=== PATIENT | male | born 1955 | race Caucasian/White ===

== ENCOUNTER 2017-09-12 12:50 | Day surgery (SDC) | payer BC ==
[~2017-09-12] VITALS: Ht 185.4 cm; Wt 83.8 kg
[~2017-09-12 12:50] MED LIST: BACITRACIN 50,000 UNIT ONE; BUPIVACAINE/PF-EPI 0.5% 1:200K ONE; THROMBIN 5,000 UNIT VIAL TP ONE
[2017-09-12] MEDS ORDERED: LACTATED RINGERS 1,000 ML IV SCH (13:31)
[2017-09-12] MEDS ORDERED: LISI-167 PO (13:32)
[2017-09-12] MEDS ORDERED: SIMV20TA3 PO (13:33)
[2017-09-12 13:36] VITALS: BP 118/87
[2017-09-12] MEDS ORDERED: METOCLOPRAMIDE 10MG TABLET PO ONE (14:00)
[2017-09-12] MEDS ORDERED: GABAPENTIN 300 MG CAPSULE PO ONE (14:00)
[2017-09-12] MEDS ORDERED: TAMSULOSIN 0.4 MG CAP.ER.24H PO ONE (14:00)
[2017-09-12] MEDS ORDERED: ACETAMINOPHEN 500 MG TABLET PO ONE (14:00)
[2017-09-12] MEDS ORDERED: FAMOTIDINE 20 MG TABLET PO ONE (14:00)
[2017-09-12] MEDS ORDERED: MIDAZOLAM 1 MG/ML, 2ML ONE (14:09)
[2017-09-12] MEDS ORDERED: FENTANYL PF 250 MCG/5ML ONE (14:09)
[2017-09-12] MEDS ORDERED: CEFAZOLIN 1,000 MG ONE (15:25)
[2017-09-12] MEDS ORDERED: LIDOCAINE-MPF 2% ,5ML ONE (15:25)
[2017-09-12] MEDS ORDERED: PHENYLEPHRINE 10 MG/ML ONE (15:25)
[2017-09-12] MEDS ORDERED: PROPOFOL 10 MG/ML, 20ML ONE (15:25)
[2017-09-12] MEDS ORDERED: ROCURONIUM 10 MG/ML,10ML ONE (15:25)
[2017-09-12] MEDS ORDERED: SUCCINYLCHOLINE 20 MG/ML, 10ML ONE (15:25)
[2017-09-12] MEDS ORDERED: DEXAMETHASONE 4 MG/ML, 1ML ONE (15:25)
[2017-09-12] MEDS ORDERED: ONDANSETRON 2MG/ML, 2ML ONE (15:25)
[2017-09-12] MEDS ORDERED: LIDOCAINE 4%, 4 ML SYR/CANN TP ONE (15:25)
[2017-09-12] MEDS ORDERED: ALBUTEROL SULFATE 2.5 MG/3 ML NPPB PRN (16:00)
[2017-09-12] MEDS ORDERED: FENTANYL PF 100 MCG/2ML IV PRN (16:00)
[2017-09-12] MEDS ORDERED: PROMETHAZINE 25 MG/ML, 1ML IV PRN (16:00)
[2017-09-12] MEDS ORDERED: DIAZEPAM 5 MG/ML, 2ML IVPush PRN (16:00)
[2017-09-12] MEDS ORDERED: MEPERIDINE/PF 25MG/0.5ML IVPush PRN (16:00)
[2017-09-12] MEDS ORDERED: OXYcodone 5 MG/5 ML ORAL.SOL UDC PO PRN (16:00)
[2017-09-12] MEDS ORDERED: FENTANYL PF 100 MCG/2ML ONE (16:41)
[2017-09-12] MEDS ORDERED: OXYcodone 5 MG/5 ML ORAL.SOL UDC ONE (16:42)
[2017-09-12] MEDS ORDERED: morphine SULFATE 10 MG/ML, 1ML ONE (17:07)
[2017-09-12] MEDS: MORPHINE SULFATE 4 MG/ML, 1ML IVPush PRN ×2 (17:10→17:17)
[2017-09-12] MEDS ORDERED: SIMVASTATIN 20 MG TABLET PO SCH (21:00)
[2017-09-13] MEDS ORDERED: LISINOPRIL 10 MG TABLET PO SCH (09:00)
== END 2017-09-12 20:10 | disposition home or self-care (01) ==
LOC: OUT 12:50 → 4NOR 17:32 → OUT 20:10
PROVIDERS: ATTEND Neurological Surgery
DX: M51.16 Intervertebral disc disorders with radiculopathy, lumbar region (principal); I10 Essential (primary) hypertension; E78.5 Hyperlipidemia, unspecified
CPT/HCPCS: 63030; 72100; J0330; J0690; J1100; J2250; J2370; J2405; J2704; J3010; J3490; J7120

== ENCOUNTER → 2018-05-10 | Outpatient (CLI) | payer BC ==
[~2018-05-10] MED LIST changes: -BACITRACIN 50,000 UNIT ONE; -BUPIVACAINE/PF-EPI 0.5% 1:200K ONE; +LISI-167 PO; +SIMV20TA3 PO; -THROMBIN 5,000 UNIT VIAL TP ONE
[2018-05-10 08:49] LABS: BASOPHILS # (AUTO) 0.03 x10^3/uL (0-0.1); BASOPHILS % (AUTO) 1 % (0-1); EOSINOPHILS # (AUTO) 0.14 x10^3/uL (0-0.4); EOSINOPHILS % (AUTO) 4 % (1-7); LYMPHOCYTES # (AUTO) 1.61 x10^3/uL (1-3.4); LYMPHOCYTES % (AUTO) 41 % (22-44); MD NO; MEAN CORPUSCULAR HEMOGLOBIN 27.2 pg (27.5-34.5); MEAN CORPUSCULAR HGB CONC 32.9 g/dL (33.2-36.2); MEAN CORPUSCULAR VOLUME 82.8 fL (81-97); MEAN PLATELET VOLUME 7.7 fL (7.4-10.4); MONOCYTES # (AUTO) 0.35 x10^3/uL (0.2-0.8); MONOCYTES % (AUTO) 9 % (2-9); NEUTROPHILS # (AUTO) 1.82 x10^3/uL (1.8-6.8); NEUTROPHILS % (AUTO) 46 % (42-75); PLATELET COUNT 286 x10^3/uL (130-400); RED BLOOD COUNT 4.64 x10^6/uL (4.38-5.82); RED CELL DISTRIBUTION WIDTH 16.9 % (9.4-14.8)
[2018-05-10 08:56] LABS: MICROSCOPIC NOT IND
[2018-05-10 09:01] LABS: CULTURE INDICATED? NO
[2018-05-10 09:03] LABS: ALANINE AMINOTRANSFERASE 27 U/L (12-78); ALBUMIN 4.1 g/dL (3.4-5.0); ANION GAP 3 mmol/L (5-15); CALCIUM 8.8 mg/dL (8.5-10.1); CHLORIDE 111 mmol/L (98-107); CREATININE 1.09 mg/dL (0.7-1.3)
[2018-05-10 09:05] LABS: ALKALINE PHOSPHATASE 73 U/L (45-117); BILIRUBIN,TOTAL 0.6 mg/dL (0.2-1.0); TOTAL PROTEIN 7.3 g/dL (6.4-8.2)
[2018-05-10 14:54] LABS: INTERNATIONAL NORMALIZED RATIO 0.93 (0.93-1.1); PROTHROMBIN TIME 9.8 Seconds (9.6-11.5)
== END | disposition home or self-care (01) ==
LOC: STAR 07:47
PROVIDERS: ATTEND Neurological Surgery
DX: Z01.818 Encounter for other preprocedural examination (principal); M51.26 Other intervertebral disc displacement, lumbar region
CPT/HCPCS: 36415; 80053; 81003; 85025; 85610; 85730; 93005

== ENCOUNTER 2018-05-22 05:26 | Day surgery (SDC) | payer BC ==
[~2018-05-22] VITALS: Ht 185.4 cm; Wt 83.2 kg
[2018-05-22] MEDS ORDERED: LACTATED RINGERS 1,000 ML IV SCH (06:06)
[2018-05-22 06:12] VITALS: BP 138/99
[2018-05-22] MEDS ORDERED: THROMBIN 20,000 UNIT VIAL TP ONE ×2 (06:52→07:56)
[2018-05-22] MEDS ORDERED: BUPIVACAINE/PF 0.25% ONE (06:52)
[2018-05-22] MEDS ORDERED: EPINEPHRINE 1 MG/ML, 1ML ONE (06:52)
[2018-05-22] MEDS ORDERED: BACITRACIN 50,000 UNIT ONE (06:52)
[2018-05-22] MEDS ORDERED: VANCOMYCIN 1,000 MG ONE (06:54)
[2018-05-22] MEDS ORDERED: MIDAZOLAM 1 MG/ML, 2ML ONE (07:13)
[2018-05-22] MEDS ORDERED: FENTANYL PF 250 MCG/5ML ONE (07:13)
[2018-05-22] MEDS ORDERED: PROPOFOL 10 MG/ML, 20ML ONE (07:36)
[2018-05-22] MEDS ORDERED: EPHEDRINE 50 MG/ML, 1ML ONE (07:36)
[2018-05-22] MEDS ORDERED: DEXAMETHASONE 4 MG/ML, 1ML ONE (07:36)
[2018-05-22] MEDS ORDERED: GLYCOPYRROLATE 0.2MG/1ML, 5ML ONE (07:36)
[2018-05-22] MEDS ORDERED: ROCURONIUM 10 MG/ML,10ML ONE (07:36)
[2018-05-22] MEDS ORDERED: CEFAZOLIN 1,000 MG ONE (07:36)
[2018-05-22] MEDS ORDERED: ONDANSETRON 2MG/ML, 2ML ONE (07:36)
[2018-05-22] MEDS ORDERED: NEOSTIGMINE 1 MG/ML, 10ML ONE (07:36)
[2018-05-22] MEDS ORDERED: methylPREDNISolone SOD SUCC 125 MG/2 ML IVPush ONE (07:56)
[2018-05-22] MEDS ORDERED: BUPIVACAINE/PF-EPI 0.25% 1:200K INFIL ONE (07:56)
[2018-05-22] MEDS ORDERED: FENTANYL PF 100 MCG/2ML IM ONE (07:56)
[2018-05-22] MEDS ORDERED: BACITRACIN 50,000 UNIT IM ONE (07:56)
[2018-05-22] MEDS ORDERED: PROMETHAZINE 25 MG/ML, 1ML IV PRN (08:30)
[2018-05-22] MEDS ORDERED: HYDROmorphone 2 MG/ML, 1ML IVPush PRN (08:30)
[2018-05-22] MEDS ORDERED: ALBUTEROL SULFATE 2.5 MG/3 ML NPPB PRN (08:30)
[2018-05-22] MEDS ORDERED: hydrALAzine 20 MG/ML, 1ML IV PRN (08:30)
[2018-05-22] MEDS ORDERED: ACETAMINOPHEN 325 MG TABLET PO PRN (08:30)
[2018-05-22] MEDS ORDERED: DIAZEPAM 5 MG/ML, 2ML IVPush PRN (08:30)
[2018-05-22] MEDS ORDERED: KETOROLAC 30 MG/1 ML IV PRN (08:30)
[2018-05-22] MEDS ORDERED: OXYcodone 5 MG/5 ML ORAL.SOL UDC PO PRN (08:30)
[2018-05-22] MEDS ORDERED: LABETALOL 5MG/ML, 20ML IV PRN (08:30)
[2018-05-22] MEDS ORDERED: MEPERIDINE/PF 25MG/0.5ML IVPush PRN (08:30)
[2018-05-22] MEDS ORDERED: FENTANYL PF 100 MCG/2ML ONE ×2 (08:54→09:56)
[2018-05-22] MEDS ORDERED: methylPREDNISolone SOD SUCC 125 MG/2 ML ONE (08:54)
[2018-05-22] MEDS ORDERED: OXYcodone 5 MG/5 ML ORAL.SOL UDC ONE (09:56)
[2018-05-22] MEDS ORDERED: ACETAMINOPHEN 650 MG/20.3 ML UDC ONE (09:56)
[2018-05-22] MEDS: FENTANYL PF 100 MCG/2ML IV PRN ×3 (10:01→10:15)
== END 2018-05-22 11:48 | disposition home or self-care (01) ==
LOC: OR 05:26 → OUT 11:48
PROVIDERS: ATTEND Neurological Surgery
DX: M51.16 Intervertebral disc disorders with radiculopathy, lumbar region (principal); Z72.89 Other problems related to lifestyle; I10 Essential (primary) hypertension
CPT/HCPCS: 63030; 72100; J0171; J0690; J1100; J2250; J2405; J2704; J2710; J2930; J3010; J3370; J3490; J7120